=== PATIENT | female | born 1965 | race Caucasian/White ===

== ENCOUNTER → 2023-11-30 | Outpatient (CLI) | payer OTHER ==
[~2023-11-30] MED LIST: BRIVIACT100 MG; LEVE500 PO; PHENY100ER
[2023-11-30 16:26] LABS: BASOPHILS ABSOLUTE AUTO 0.07 K/mm3 (0.00-0.23); BASOPHILS PERCENT AUTO 1 % (0-2); EOSINOPHILS ABSOLUTE AUTO 0.09 K/mm3 (0.00-0.68); EOSINOPHILS PERCENT AUTO 1 % (0-6); Hematocrit 41.2 % (33.0-51.0); Hemoglobin 13.8 g/dL (11.5-16.0); IMMATURE GRAN ABSOLUTE AUTO 0.02 K/mm3 (0.00-0.10); IMMATURE GRAN PERCENT AUTO 0 % (0-1); LYMPHOCYTES ABSOLUTE AUTO 2.34 K/mm3 (0.84-5.20); LYMPHOCYTES PERCENT AUTO 26 % (21-46); MONOCYTES ABSOLUTE AUTO 0.47 K/mm3 (0.16-1.47); MONOCYTES PERCENT AUTO 5 % (4-13); Mean Corpuscular HGB 31.9 pg (26.0-34.0); Mean Corpuscular HGB Conc 33.5 g/dL (31.5-36.5); Mean Corpuscular Volume 95 fL (80-100); Mean Platelet Volume 11.5 fL (9.1-12.4); NEUTROPHILS ABSOLUTE AUTO 6.11 K/mm3 (1.96-9.15); NEUTROPHILS PERCENT AUTO 67 % (41-73); Platelet Count 333 K/mm3 (150-400); RDW Coefficient Variation 13.7 % (11.7-14.2); RDW Standard Deviation 47.4 fL (35.1-46.3); Red Blood Cell Count 4.33 M/mm3 (3.80-5.20)
[2023-11-30 16:50] LABS: Alanine Aminotransfer (ALT/SGP 19 U/L (12-78); Albumin, Blood 3.7 g/dL (3.4-5.0); Albumin/Globulin Ratio 0.8 (0.8-1.8); Alk Phos 134 U/L (50-136); Anion Gap 7 mmol/L (3-11); Aspartate Aminotrans (AST/SGOT 18 U/L (12-37); Bilirubin, Total 0.4 mg/dL (0.1-1.0); Blood Urea Nitrogen 7 mg/dL (8-24); CHOL/HDL RATIO 2.7; CO2, Blood 29 mmol/L (21-32); Chloride, Blood 108 mmol/L (98-108); Cholesterol 147 mg/dL (50-200); Globulin, Blood 4.4 g/dL (2.2-4.0); Glucose, Blood 94 mg/dL (70-99); HDL Cholesterol 54 mg/dL (>39); LDL/HDL RATIO 1.5; Low Density Lipoprotein Chol 81 mg/dL (0-110); Potassium, Blood 3.9 mmol/L (3.5-5.5); Sodium, Blood 140 mmol/L (136-145); Total Protein, Blood 8.1 g/dL (6.4-8.2); Triglycerides 59 mg/dL (30-160); Very Low Density Lipoprot Chol 11 mg/dL (6-32)
[2023-11-30 16:59] LABS: Bun/Creatinine Ratio 9.4 (12.0-20.0); Creatinine, Blood 0.75 mg/dL (0.40-1.00); Glomerular Filtration Rate 91 (60-)
== END ==
LOC: LAB SHORT 15:12 → LAB 15:12
PROVIDERS: Family Medicine
DX: Z79.899 Other long term (current) drug therapy (principal)
CPT/HCPCS: 80053; 80061; 84443; 85025

== ENCOUNTER 2024-12-05 15:33 | Observation (INO) | payer OTHER ==
[~2024-12-05] VITALS: Ht 147.3 cm; Wt 100.0 kg
[2024-12-05] MEDS ORDERED: ZONI100 PO (15:59)
[2024-12-05] MEDS ORDERED: CLOBAZAM20 MG PO (15:59)
[2024-12-05 16:21] LABS: Hematocrit 40.2 % (33.0-51.0); Hemoglobin 13.2 g/dL (11.5-16.0); Mean Corpuscular HGB Conc 32.8 g/dL (31.5-36.5); Mean Corpuscular Volume 97 fL (80-100); NRBC ABSOLUTE 0.00 K/mm3 (0.00-0.02); NRBC Auto 0.0 /100 WBC (0.0-0.2); Platelet Count 335 K/mm3 (150-400); RDW Coefficient Variation 14.5 % (11.7-14.2); RDW Standard Deviation 50.7 fL (35.1-46.3)
[2024-12-05 17:11] LABS: Alanine Aminotransfer (ALT/SGP 19.0 U/L (12-78); Albumin, Blood 3.7 g/dL (3.4-5.0); Albumin/Globulin Ratio 0.8 (0.8-1.8); Anion Gap 7.0 mmol/L (3-11); Aspartate Aminotrans (AST/SGOT 20.0 U/L (12-37); Bilirubin, Total 0.4 mg/dL (0.1-1.0); Blood Urea Nitrogen 9.0 mg/dL (8-24); CO2, Blood 27.0 mmol/L (21-32); Calcium, Blood 9.0 mg/dL (8.5-10.1); Chloride, Blood 106.0 mmol/L (98-108); Creatinine, Blood 0.78 mg/dL (0.40-1.00); Globulin, Blood 4.4 g/dL (2.2-4.0); Glucose, Blood 113.0 mg/dL (70-99); Potassium, Blood 3.7 mmol/L (3.5-5.5); Sodium, Blood 136.0 mmol/L (136-145); Total Protein, Blood 8.1 g/dL (6.4-8.2)
[2024-12-05 17:56] LABS: BAND PERCENT MAN 1 % (0-8); BASOPHILS ABSOLUTE MAN 0.00 K/mm3 (0.00-0.23); BASOPHILS PERCENT MAN 0 % (0-2); EOSINOPHILS ABSOLUTE MAN 0.00 K/mm3 (0.00-0.68); EOSINOPHILS PERCENT MAN 0 % (0-6); LYMPHOCYTES ABSOLUTE MAN 3.36 K/mm3 (0.84-5.20); LYMPHOCYTES PERCENT MAN 40 % (21-46); MONOCYTES ABSOLUTE MAN 0.00 K/mm3 (0.16-1.47); MONOCYTES PERCENT MAN 0 % (4-13); NEUTROPHILS ABSOLUTE MAN 5.05 K/mm3 (1.96-9.15); SEG NEUTROPHILS PERCENT MAN 59 % (41-73)
[2024-12-05] MEDS ORDERED: Ondansetron HCl 2 MG / ML 2ML Vial IV PRN (20:15)
[2024-12-05 22:57] VITALS: BP 121/75
[2024-12-05] MEDS ORDERED: Zonisamide 100 MG CAP PO SCH (23:42)
--- NOTE | 2024-12-06 00:28 | NUR ---
PT HERE FROM THE ER. ALERT AND ORIENTED X4. ON RA, NSR ON TELE. PT STATES SHE HAS BEEN HAVING BALANCE ISSUES D/T SEIZURES. ALSO STATES A CHANGE IN HER SEIZURE MEDS. AMBULATING INDEPENDENTLY IN THE ROOM AND BATHROOM BUT SBA. NO BALANCE ISSUES NOTED SO FAR. WEARS CONTACTS AND STATES HAVING BLURRED VISION OCCASIONALLY, AND STRESS INCONINENCY. ORIENTED TO ROOM, CALL BRADLEY WITHIN REACH.
[2024-12-06 04:47] VITALS: BP 102/60
[2024-12-06 04:59] LABS: BASOPHILS ABSOLUTE AUTO 0.08 K/mm3 (0.00-0.23); BASOPHILS PERCENT AUTO 1 % (0-2); EOSINOPHILS ABSOLUTE AUTO 0.26 K/mm3 (0.00-0.68); EOSINOPHILS PERCENT AUTO 3 % (0-6); Hematocrit 38.6 % (33.0-51.0); Hemoglobin 12.9 g/dL (11.5-16.0); IMMATURE GRAN ABSOLUTE AUTO 0.02 K/mm3 (0.00-0.10); IMMATURE GRAN PERCENT AUTO 0 % (0-1); LYMPHOCYTES ABSOLUTE AUTO 5.05 K/mm3 (0.84-5.20); LYMPHOCYTES PERCENT AUTO 57 % (21-46); MONOCYTES ABSOLUTE AUTO 0.49 K/mm3 (0.16-1.47); MONOCYTES PERCENT AUTO 6 % (4-13); Mean Corpuscular HGB Conc 33.4 g/dL (31.5-36.5); Mean Corpuscular Volume 97 fL (80-100); NEUTROPHILS ABSOLUTE AUTO 2.98 K/mm3 (1.96-9.15); NEUTROPHILS PERCENT AUTO 34 % (41-73); NRBC ABSOLUTE 0.00 K/mm3 (0.00-0.02); NRBC Auto 0.0 /100 WBC (0.0-0.2); Platelet Count 268 K/mm3 (150-400); RDW Coefficient Variation 14.1 % (11.7-14.2); RDW Standard Deviation 49.2 fL (35.1-46.3)
[2024-12-06 05:24] LABS: Alanine Aminotransfer (ALT/SGP 17.0 U/L (12-78); Albumin, Blood 3.3 g/dL (3.4-5.0); Albumin/Globulin Ratio 0.8 (0.8-1.8); Anion Gap 4.0 mmol/L (3-11); Aspartate Aminotrans (AST/SGOT 16.0 U/L (12-37); Bilirubin, Total 0.6 mg/dL (0.1-1.0); Blood Urea Nitrogen 7.0 mg/dL (8-24); CO2, Blood 28.0 mmol/L (21-32); Calcium, Blood 8.7 mg/dL (8.5-10.1); Chloride, Blood 108.0 mmol/L (98-108); Creatinine, Blood 0.67 mg/dL (0.40-1.00); Globulin, Blood 3.9 g/dL (2.2-4.0); Glucose, Blood 84.0 mg/dL (70-99); Magnesium, Blood 2.0 mg/dL (1.6-2.4); Potassium, Blood 3.3 mmol/L (3.5-5.5); Sodium, Blood 137.0 mmol/L (136-145); Total Protein, Blood 7.2 g/dL (6.4-8.2)
[2024-12-06 06:58] VITALS: BP 107/63
--- NOTE | 2024-12-06 07:34 | NUR ---
PT IS ALERT AND ORIENT. AMBULATING INDPENDENTLY TO THE BATHROOM BUT SBA FOR SAFETY D/T SEIZURES. ON SEIZURE PRECAUTIONS WITH PADDED BED. PT AWARE THAT THE PHARMACY STATES HER HOME MED CLOBAZAM IS NOT AVAILABLE AND FAMILY WOULD HAVE TO BRING IT IN. NO BALANCE ISSUES SO FAR. SOME BLURRED VISION. AWARE PLAN OF MRI& ECHO TODAY. ON ROOM AIR. CALL BRADLEY WITHIN REACH.
[2024-12-06] MEDS ORDERED: Enoxaparin 40 MG/0.4 ML SYR SC SCH (09:00)
[2024-12-06] MEDS ORDERED: HYDROCORTISON28.4 G3 TOP (10:11)
[2024-12-06 11:28] VITALS: BP 110/70
--- NOTE | 2024-12-06 15:42 | NUR ---
"Spiritual Care | Pt. request Pt. is on the phone and waves this funeral director's assistant to bedside. After the phone call ended she welcomed my visit. Pt. initiated a life review which considered matters of laci , belief, and her 's struggle with addiction. Listen with empathy and a calming presence. Pt. displayed evidence of a very strong laci and trust in God. Listen with pastoral care. Prayed with the Pt. Pt. verbalized gratitude for the spiritual care visit."
[2024-12-06 16:29] VITALS: BP 123/74
--- NOTE | 2024-12-06 17:34 | NUR ---
SHIFT SUMMARY PT AOX4, COOPERATIVE, ABLE TO MAKE NEEDS KNOWN. PT IS IND IN ROOM. TOLERATING MEDICAITON. SLEECH IS A LITTLE SLOW, SLIGHT LEFT CHEEK DROOP WHILE SMILING. RUNNING TELE. SUPPOSED TO DC TONIGHT, NOT SURE WHEN. BED IN LOWEST POSITION, CALL LIGHT WITHIN REACH.
[2024-12-06] MEDS ORDERED: ASPI81CH PO (17:52)
[2024-12-06] MEDS ORDERED: ATOR80 PO (17:53)
[2024-12-06] MEDS ORDERED: CLOP75 PO (17:53)
--- NOTE | 2024-12-06 18:23 | NUR ---
SHIFT SUMMARY/DISCHARGE PT AOX4, COOPERATIVE, ABLE TO MAKE NEEDS KNOWN. PT IS IND IN ROOM. TOLERATING MEDICATIONS, RUNNING TELE WHICH IS DC'D, WELL IV BY NEWS PRODUCER. THIS RN DID OFFER WHEELCHAIR TRANSPORT TO PT, TO WHICH PT REFUSED. THIS RN WENT OVER DC PAPERWORK TO PT AND FAMILY MEMBER WITH LITTLE QUESTIONS. NEW PRESCRIPTIONS SENT TO [facility] TOLD TO THE PT. BED IN LOWEST POSITION, CALL LIGHT WITHIN REACH.
== END 2024-12-06 18:42 | disposition home or self-care (01) ==
LOC: ER 15:33 → ERHOLD 15:34 → MEDS 15:34 → EDBEDREQSVC 20:18 → EDBEDREQ 20:18 → EDBEDREQTM 20:18 → MEDS 22:50
PROVIDERS: Emergency Medicine; ADMIT Student in an Organized Health Care Education/Training Program
DX: I63.89 Other cerebral infarction (principal); R29.700 NIHSS score 0; Z79.02 Long term (current) use of antithrombotics/antiplatelets; Z79.82 Long term (current) use of aspirin; Z79.899 Other long term (current) drug therapy; Z88.2 Allergy status to sulfonamides; Z91.038 Other insect allergy status
CPT/HCPCS: 36415; 70450; 70553; 80053; 83735; 85025; 93005; 93010; 93306; 96372; 97165; 99285-25; A9270; A9579; G0378; J1650

== ENCOUNTER → 2025-01-22 | Outpatient (CLI) | payer OTHER ==
[~2025-01-22] MED LIST changes: +ASPI81CH PO; +ATOR80 PO; +CLOBAZAM20 MG PO; +CLOP75 PO; +HYDROCORTISON28.4 G3 TOP; +ZONI100 PO
[2025-01-22 19:52] LABS: Thyroid Stimulating Hormone 1.97 uIU/mL (0.360-4.800)
== END ==
LOC: LAB 11:50 → LAB SHORT 11:50
PROVIDERS: Family Medicine
DX: R41.3 Other amnesia (principal)
CPT/HCPCS: 82607; 82746; 84443